=== PATIENT | female | born 1995 | race Two or more races ===

== ENCOUNTER 2025-09-03 22:07 | Inpatient (IN) | payer OTHER ==
[~2025-09-03] VITALS: Ht 172.7 cm; Wt 84.8 kg
--- NOTE | 2025-09-03 22:34 | NUR ---
SE RECIBE PACIENTE EN AMBULANCIA ALERTA Y ORIENTADA X3, REFIERE DOLOR ABDOMINAL Y NAUSEAS DESDE CHELO.
[2025-09-03] MEDS ORDERED: ONDANSETRON HCL 2 MG/ML VIAL IV ONE (23:00)
[2025-09-03] MEDS ORDERED: PIPERACILLIN/TAZOBACTAM SODIUM 3.375 GM VIAL IV ONE (23:00)
[2025-09-03] MEDS ORDERED: FAMOTIDINE/PF 20 MG/2 ML VIAL IV ONE (23:00)
[2025-09-03] MEDS ORDERED: 0.9 % SODIUM CHLORIDE 1,000 ML IV SCH (23:00)
[2025-09-03] MEDS ORDERED: KETOROLAC TROMETHAMINE 30 MG VIAL IV ONE (23:45)
--- NOTE | 2025-09-04 00:38 | NUR ---
SE EDUCA A PACIENTE SOBRE TRATAMIENTO MEDICO EL CUAL REFIERE ENTENDER, SE REALIZA NANCY DE MUESTRAS Y ADMINISTRACION DE MEDICAMENTOS SIENA ORDEN MEDICA.
[2025-09-04 01:27] LABS: URINE APPEARANCE Cloudy; URINE BILIRRUBIN Negative (NEGATIVE); URINE BLOOD Negative; URINE COLOR Yellow; URINE GLUCOSE Negative (NEGATIVE); URINE KETONE Negative (NEGATIVE); URINE LEUKOCYTE Moderate; URINE NITRATE Negative; URINE PROTEIN Negative (NEGATIVE); URINE UROBILINOGEN 0.2 E.U./dl
[2025-09-04 01:34] LABS: URINE EPITHELIAL CELLS 53.6 uL (0.0-38.8); URINE RBC 108.8 uL (0.0-20.8); URINE WBC 16.7 uL (0.0-23.2)
[2025-09-04 01:55] LABS: URINE CAST 0.58 uL (0.0-1.40)
[2025-09-04 03:19] LABS: BASO % 0.5 % (0.1-1.2); EOS # 0.15 (0.04-0.54); EOS % 1.4 % (0.7-7.0); LYMPH # 1.65 (1.18-3.74); LYMPH % 15.8 % (19.3-53.1); MEAN PLATELET VOLUME 11.80 fl (9.4-12.4); MONO # 0.83 (0.24-0.82); MONO % 8.0 % (4.7-12.5); NEUT # 7.74 (1.56-6.13); NEUT % 74.1 % (34.0-71.1); RED CELL DISTRIBUTION WIDTH 13.2 % (11.6-14.4)
[2025-09-04 03:24] LABS: ERYTHROCYTE SEDIMENTATION RATE 15 mm/hr (0-20)
[2025-09-04 03:38] LABS: INR 1.03
[2025-09-04 03:50] LABS: ALT/SGPT 16 U/L (12-78); AST/SGOT 7 U/L (15-37); BILIRUBIN TOTAL 0.81 mg/dL (0.3-1.2); BUN CREA RATIO 18 (7.0-25.0); CREATININE SERUM 0.50 mg/dL (0.55-1.02); GFR 145.87; GLOBULINA 2.9 G/DL (2.4-3.5); GLUCOSE FASTING 98 mg/dL (65-100); OSMOLALITY SERUM 282 MOSM/KG (275-295)
[2025-09-04 03:59] LABS: HCG QUANTITATIVE < 1 mUI/mL (1-3)
[2025-09-04] MEDS ORDERED: KETOROLAC TROMETHAMINE 30 MG VIAL IV STA (06:09)
[2025-09-04] MEDS ORDERED: PIPERACILLIN/TAZOBACTAM SODIUM 3.375 GM in DEXTROSE 5 % IN WATER 100 ML IV SCH (06:09)
[2025-09-04] MEDS ORDERED: PIPERACILLIN/TAZOBACTAM SODIUM 3.375 GM VIAL IV ONE ×3 (06:19→18:58)
[2025-09-04] MEDS ORDERED: KETOROLAC TROMETHAMINE 30 MG VIAL ONE ×2 (06:19→19:46)
--- NOTE | 2025-09-04 08:02 | NUR ---
SE RECIBE PTE FEMENINA EN USAMA CON BARBADAS ELEVADA CON IVF'S PATENTE , PTE CONSULTADA CON MEDICO INTERNISTA . SE MANTIENE AL MOMENTO OUMAR DE DOLOR .S E OBSERVA POR CAMBIOS.
[2025-09-04 10:54] VITALS: BP 130/87
[2025-09-04] MEDS ORDERED: FAMOTIDINE/PF 20 MG/2 ML VIAL IV SCH (12:27)
[2025-09-04] MEDS ORDERED: MORPHINE SULFATE 4 MG/ML CARTRIDGE IV PRN ×2 (12:30→19:52)
[2025-09-04] MEDS ORDERED: LIDOCAINE HCL 1%/EPINEPHRINE 20ML VIAL IJ ONE (16:02)
[2025-09-04] MEDS ORDERED: BUPIVACAINE HCL/MPF 0.5% 30ML VIAL ONE (16:02)
[2025-09-04] MEDS ORDERED: CEFAZOLIN SODIUM 1,000 MG VIAL ONE (16:02)
[2025-09-04] MEDS ORDERED: SUGAMMADEX SODIUM 200 MG/2 ML VIAL IV ONE (16:47)
[2025-09-04] MEDS ORDERED: AA 4.25%/CAL/LYTES/DEXT 5% 1,000 ML PERIFERAL SCH (17:00)
[2025-09-04] MEDS ORDERED: ONDANSETRON HCL 2 MG/ML VIAL ONE ×2 (17:54→19:47)
[2025-09-04] MEDS ORDERED: ONDANSETRON HCL 2 MG/ML VIAL IV PRN (20:00)
[2025-09-04] MEDS ORDERED: KETOROLAC TROMETHAMINE 30 MG VIAL IV SCH (21:00)
[2025-09-05 03:14] VITALS: BP 154/90; O2SAT 95
[2025-09-05] MEDS ORDERED: PIPERACILLIN/TAZOBACTAM SODIUM 3.375 GM VIAL IV ONE (08:23)
[2025-09-05 08:58] VITALS: BP 120/78; O2SAT 97
[2025-09-05 10:14] LABS: BASO % 0.2 % (0.1-1.2); EOS # 0.01 (0.04-0.54); EOS % 0.1 % (0.7-7.0); LYMPH # 1.36 (1.18-3.74); LYMPH % 13.3 % (19.3-53.1); MEAN PLATELET VOLUME 12.40 fl (9.4-12.4); MONO # 0.62 (0.24-0.82); MONO % 6.1 % (4.7-12.5); NEUT # 8.14 (1.56-6.13); NEUT % 79.8 % (34.0-71.1); RED CELL DISTRIBUTION WIDTH 13.0 % (11.6-14.4)
[2025-09-05 11:15] LABS: ALT/SGPT 14.0 U/L (12-78); AST/SGOT 10.0 U/L (15-37); BILIRUBIN TOTAL 0.84 mg/dL (0.3-1.2); BUN CREA RATIO 14.0 (7.0-25.0); CREATININE SERUM 0.44 mg/dL (0.55-1.02); GFR 169.05; GLOBULINA 3.2 G/DL (2.4-3.5); GLUCOSE FASTING 94.0 mg/dL (65-100); OSMOLALITY SERUM 271.0 MOSM/KG (275-295)
[2025-09-05 13:42] LABS: CHOL HDL RATIO 2.7 (0-5.0); HDL 54.0 mg/dl (40-60); LDL 82.0 mg/dl (0-130); VLDL 11.0 (0-39)
[2025-09-05 20:13] VITALS: BP 146/94
[2025-09-06 02:01] VITALS: BP 115/77; O2SAT 98
[2025-09-06] MEDS ORDERED: PIPERACILLIN/TAZOBACTAM SODIUM 3.375 GM VIAL IV ONE (08:07)
[2025-09-06 08:55] VITALS: BP 133/82; O2SAT 97
[2025-09-06] MEDS ORDERED: KETOROLAC TROMETHAMINE 30 MG VIAL IV PRN (16:45)
[2025-09-06 17:17] VITALS: BP 138/96; O2SAT 94
[2025-09-07 01:43] VITALS: BP 142/85; O2SAT 96
[2025-09-07 10:06] VITALS: BP 129/85; O2SAT 97
[2025-09-07] MEDS ORDERED: TRAM1TAB98 PO (10:45)
== END 2025-09-07 13:24 | disposition home or self-care (01) | DRG 399 ==
LOC: ER 22:07 → MEDJ 09-04 12:32 → SEC-K 09-04 12:32 → MEDJ 09-04 15:31
PROVIDERS: Student in an Organized Health Care Education/Training Program; Surgery; ADMIT Internal Medicine; ATTEND Internal Medicine
PROC: 0DTJ0ZZ Resection of Appendix, Open Approach (ICD-10-PCS; principal; 2025-09-04 16:00)
DX: K35.890 Other acute appendicitis without perforation or gangrene (principal)